=== PATIENT | female | born 1960 | race Caucasian/White ===

== ENCOUNTER → 2016-07-10 | Outpatient (CLI) | payer BC ==
[~2016-07-10] MED LIST: ASCO10006 PO; CALC-140 PO; ELET40TA PO; IBUP200C11 PO; IPRA15SP2 NS; LRT10T PO; MULT-890 PO; POLY17PO6 PO; TOPI25TA36 PO
--- NOTE | 2016-07-11 09:40 | Diagnostic Imaging Report ---
. INDICATION: Screening. COMPARISON: 06/08/2015. The current digital study was evaluated with a Computer Aided Detection (CAD). FINDINGS: There is dense fibroglandular pattern throughout both breasts. There are no masses. No clustered calcifications or architectural distortion. IMPRESSION: Stable bilateral mammogram. Routine followup recommended. ACR BI-RADS Category 1: Negative. Result letter will be mailed to the patient. Note: At least 10% of breast cancer is not imaged by mammography. Dictated by: Dictated on workstation # [id number]
== END ==
LOC: RAD 12:52
PROVIDERS: ATTEND Family Medicine
DX: Z12.31 Encounter for screening mammogram for malignant neoplasm of breast (principal)